=== PATIENT | male | born 1960 | race African-American/Black ===

== ENCOUNTER 2017-06-05 13:21 | Emergency (ER) | payer SELFPAY ==
[2017-06-05 13:49] LABS: BASOPHILS 0.5 % (0-2); EOSINOPHILS 5.4 % (0-7); HEMATOCRIT 36.9 % (42.0-54.0); HEMOGLOBIN 12.5 g/dL (13.5-17.5); IMMATURE GRANULOCYTES 0.8 % (0-5); LYMPHOCYTES 33.6 % (15-50); MCH 23.9 pg (26.0-34.0); MCHC 33.9 g/dL (31.0-37.0); MCV 70.4 fL (80.0-100.0); MEAN PLATELET VOLUME 10.1 fL (7.4-10.4); MONOCYTES 7.7 % (2-11); PLATELET COUNT 299 10x3/uL (130-400); RBC 5.24 10x6/uL (4.20-6.10); RDW 14.6 % (11.5-14.5); WBC 6.6 10x3/uL (4.8-10.8)
[2017-06-05 13:55] LABS: APTT 26.7 SECONDS (22.8-39.4); INR 0.88 (0.85-1.17); PROTIME 11.8 SECONDS (11.6-15.0)
[2017-06-05 14:03] LABS: ALBUMIN 2.6 g/dL (3.4-5.0); ANION GAP 12.6 mmol/L (8-16); BILIRUBIN - TOTAL 0.15 mg/dL (0.2-1.3); CALCIUM 8.6 mg/dL (8.5-10.1); CARBON DIOXIDE 27.9 mmol/L (21.0-32.0); CREATININE - SERUM 1.4 mg/dL (0.6-1.3); POTASSIUM - SERUM 4.5 mmol/L (3.5-5.1); PROTEIN - SERUM 7.1 g/dL (6.4-8.2)
== END 2017-06-05 16:01 | disposition home or self-care (01) ==
LOC: D.ER 13:21
PROVIDERS: Emergency Medicine
DX: M54.12 Radiculopathy, cervical region (principal); F17.200 Nicotine dependence, unspecified, uncomplicated; I49.3 Ventricular premature depolarization; I45.10 Unspecified right bundle-branch block